=== PATIENT | male | born 1990 | race Caucasian/White ===

== ENCOUNTER 2018-10-09 11:39 | Emergency (ER) | payer SELFPAY ==
[2018-10-09] MEDS ORDERED: SILVER SULFADIAZINE 1 % 25 GM TUBE TOP ONE (12:01)
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
[2018-10-09 12:04] VITALS: BP 130/82; TEMP 97.8; O2SAT 97
== END 2018-10-09 12:20 | disposition home or self-care (01) ==
LOC: ER 11:39
DX: T24.212A Burn of second degree of left thigh, initial encounter (principal); X08.8XXA Exposure to other specified smoke, fire and flames, initial encounter